=== PATIENT | female | born 1945 | race Caucasian/White ===

== ENCOUNTER → 2018-03-12 11:58 | Outpatient (CLI) | payer MEDICARE, OTHER, SELFPAY ==
--- NOTE | 2018-03-12 | DI.MG.S_ITS ---
BILATERAL DIGITAL SCREENING MAMMOGRAM 3D/2D WITH CAD: 03/12/2018 CLINICAL: Routine screening. Comparison is made to exam dated: 09/27/2013 [facility]. The tissue of both breasts is heterogeneously dense. This may lower the sensitivity of mammography. Current study was also evaluated with a Computer Aided Detection (CAD) system. No significant masses, calcifications, or other findings are seen in either breast. There has been no significant interval change. IMPRESSION: NEGATIVE There is no mammographic evidence of malignancy. A 1 year screening mammogram is recommended. This exam was interpreted at Station ID: [id number]. NOTE: For mammograms, a report in lay terms will be sent to the patient. Approximately 15% of breast malignancies will not be visualized mammographically. In the management of a palpable breast mass, a negative mammogram must not discourage biopsy of a clinically suspicious lesion. Electronically Signed By: Tj farmer/panfilo:03/12/2018 12:44:51 letter sent: Normal Exam ACR BI-RADS Category 1: Negative 3341F
== END ==
PROVIDERS: PCP Family Medicine; Visit Provider Family Medicine
DX: Z12.31 Encounter for screening mammogram for malignant neoplasm of breast (principal)
CPT/HCPCS: 77063; 77067

== ENCOUNTER → 2019-07-05 11:43 | Outpatient (CLI) | payer MEDICARE, OTHER, SELFPAY ==
--- NOTE | 2019-07-05 12:21 | DI.CT.S_ITS ---
PROCEDURE: CT CHEST WO CON INDICATIONS: Personal history of nicotine dependence TECHNIQUE: Noncontrast 5 mm thick sections acquired from the pulmonary apices to the posterior costophrenic angles. 1 mm lung window, 5 mm thick coronal and sagittal and 7 mm axial MIP reformats were then acquired. For radiation dose reduction, the following was used: automated exposure control, adjustment of mA and/or kV according to patient size. COMPARISON: None. FINDINGS: Image quality: Excellent. Lungs and pleura: Left upper lobe juxta controlled nodule measuring 3 mm, (3/73). Right lower lobe pulmonary nodule measuring 2 mm, (3/222). Calcified granuloma at the right apex. Mild scarring in the right middle lobe versus atelectasis. No acute air space opacities. No pleural effusions or pneumothorax. Central and peripheral airways are patent and normal in caliber. Mediastinum: Heart size is normal. Three-vessel coronary artery calcifications. No pericardial effusion. No mediastinal adenopathy by size criteria. Thoracic aorta and central pulmonary arteries are normal in size. Esophagus is normal in caliber. No hiatal hernia. Bones and chest wall: No suspicious bony lesions. No vertebral body compression fractures. Thoracic spine kyphosis. No axillary or supraclavicular adenopathy by size criteria. Thyroid gland is unremarkable. Abdomen: Visualized upper abdominal solid organs and bowel loops appear normal in the absence of contrast. IMPRESSION: 1. A few pulmonary nodules measuring 3 mm and less. Recommend low dose CT lung cancer screening can be performed in 12 months. 2. No suspicious adenopathy. Dictated by: Gavino Villagomez M.D. on 07/05/2019 at 13:02 Approved by: Gavino Villagomez M.D. on 07/05/2019 at 13:12
== END ==
PROVIDERS: PCP Family Medicine; Visit Provider Family Medicine
DX: R91.8 Other nonspecific abnormal finding of lung field (principal); I25.10 Atherosclerotic heart disease of native coronary artery without angina pectoris; Z87.891 Personal history of nicotine dependence
CPT/HCPCS: 71250

== ENCOUNTER → 2019-09-10 15:25 | Outpatient (CLI) | payer MEDICARE, OTHER, SELFPAY ==
--- NOTE | 2019-09-10 | DI.MG.S_ITS ---
BILATERAL DIGITAL SCREENING MAMMOGRAM 3D/2D WITH CAD: 09/10/2019 CLINICAL: Routine screening. Comparison is made to exams dated: 03/12/2018 mammogram and 09/27/2013 mammogram - [facility]. 03/22/2005 [facility]. The tissue of both breasts is heterogeneously dense. This may lower the sensitivity of mammography. Current study was also evaluated with a Computer Aided Detection (CAD) system. No significant masses, calcifications, or other findings are seen in either breast. There has been no significant interval change. IMPRESSION: NEGATIVE There is no mammographic evidence of malignancy. A 1 year screening mammogram is recommended. This exam was interpreted at Station ID: [id number]. NOTE: For mammograms, a report in lay terms will be sent to the patient. Approximately 15% of breast malignancies will not be visualized mammographically. In the management of a palpable breast mass, a negative mammogram must not discourage biopsy of a clinically suspicious lesion. Electronically Signed By: Gavino Villagomez M.D. slc/:09/10/2019 18:54:32 letter sent: Normal Exam ACR BI-RADS Category 1: Negative 3341F
== END ==
PROVIDERS: PCP Family Medicine; Visit Provider Family Medicine
DX: Z12.31 Encounter for screening mammogram for malignant neoplasm of breast (principal)
CPT/HCPCS: 77063; 77067

== ENCOUNTER → 2019-10-22 08:27 | Outpatient (CLI) | payer MEDICARE, OTHER, SELFPAY ==
[2019-10-22 09:19] LABS: Influenza A - CEPHEID Flu A NEGATIVE (NEGATIVE); Influenza B - CEPHEID Flu B NEGATIVE (NEGATIVE)
== END ==
PROVIDERS: PCP Family Medicine; Visit Provider Nurse Practitioner
DX: J02.9 Acute pharyngitis, unspecified (principal); R68.89 Other general symptoms and signs
CPT/HCPCS: 87070; 87502

== ENCOUNTER → 2020-07-13 09:35 | Outpatient (CLI) | payer MEDICARE, OTHER, SELFPAY ==
--- NOTE | 2020-07-13 10:16 | DI.CT.S_ITS ---
PROCEDURE: CT CHEST WO CON INDICATIONS: LUNG NODULE TECHNIQUE: Noncontrast 2.0-2.5 mm thick sections acquired from the pulmonary apices to the posterior costophrenic angles. 7 mm thick axial MIP and 5 mm coronal and sagittal reformats were then acquired. A low radiation dose technique was utilized. COMPARISON: [facility], CT, CT CHEST WO CON, 07/05/2019, 11:54. FINDINGS: Image quality: Diagnostic, given the low radiation dose technique. Lungs and pleura: 1 mm pulmonary nodule left upper lobe unchanged since 07/05/19. Additional 2 mm nodule seen in the posterior right lower lobe also unchanged. No further follow-up necessary. Scattered subsegmental atelectasis and/or scarring. No focal consolidation. Mild bronchiectasis seen in the right lower lobe. Mediastinum: Heart size is normal. Coronary artery calcifications are present. No pericardial effusion. No mediastinal adenopathy by size criteria. Thoracic aorta and central pulmonary arteries are normal in size. Esophagus is normal in caliber. No hiatal hernia. Bones and chest wall: No vertebral body compression fracture. Spondylytic changes and facet arthropathy. No axillary or supraclavicular adenopathy by size criteria. Thyroid gland negative . Abdomen: Visualized upper abdomen solid organs and bowel loops appear normal in the absence of contrast. IMPRESSION: Unchanged appearance of sub 5 mm pulmonary nodules since 07/05/19. No further follow-up necessary. Coronary artery disease. Fleischner Society criteria for SOLID lung nodule followup. Nodule size (mm)Low-risk patientHigh-risk patient<6 (single or multiple)No routine followup.Optional CT at 12 months. 6-8 (single or multiple)CT at 6-12 months, then optional CT at 18-24 mo.CT at 6-12 months, then CT at 18-24 months. >8 (single)CT at 3 months, PET-CT, or biopsy. Same as for low-risk pts. >8 (multiple)CT at 3-6 months, then optional CT at 18-24 mo.CT at 3-6 months, then CT at 18-24 months. Fleischner Society criteria for SUB-SOLID lung nodule followup. Solitary pure ground-glass nodules<6 mm (ground glass or part solid)No followup needed. 6 mm or larger (ground glass)CT at 6-12 months to confirm persistence, then CT every 2 years until 5 years.6 mm or larger (part solid)CT at 3-6 months to confirm persistence, then annual CT until 5 years if unchanged and solid component remains <6 mm. Multiple sub-solid nodules<6 mmCT at 3-6 months, then CT consider at 2 & 4 years for high risk patients. [address] at 3-6 months. Subsequent management based on most suspicious lesions. Recommendations do not apply to lung cancer screening, patients with immunosuppression, or patients with known primary cancer. Dictated by: Dustin Bertrand M.D. on 07/13/2020 at 12:05 Approved by: Dustin Bertrand M.D. on 07/13/2020 at 12:10
== END ==
PROVIDERS: PCP Family Medicine; Referring Provider Family Medicine; Visit Provider Family Medicine
DX: R91.8 Other nonspecific abnormal finding of lung field (principal); I25.10 Atherosclerotic heart disease of native coronary artery without angina pectoris
CPT/HCPCS: 71250

== ENCOUNTER → 2020-07-17 09:10 | Outpatient (CLI) | payer MEDICARE, OTHER, SELFPAY ==
[2020-07-19 18:24] LABS: COVID19 Sendout Not Detected (Not Detect)
== END ==
PROVIDERS: PCP Family Medicine; Visit Provider Nurse Practitioner
DX: Z11.59 Encounter for screening for other viral diseases (principal)
CPT/HCPCS: 87635

== ENCOUNTER → 2020-07-20 07:48 | Outpatient (CLI) | payer MEDICARE, OTHER, SELFPAY ==
--- NOTE | 2020-07-20 17:32 | DI.NM.S_ITS ---
DATE OF SERVICE: 07/20/2020 PROCEDURE PERFORMED: Pharmacologic vasodilator stress and rest Myoview myocardial perfusion imaging study with gating to assess ejection fraction and regional wall motion. REFERRING PHYSICIAN: Dr. Stefan Pal. INDICATIONS: The patient is a 75-year-old female with reported atherosclerosis of the aorta and a family history of heart disease. CARDIAC STRESS: Per protocol, 0.4 mg of regadenoson was infused and augmented by walking on the treadmill. With this, she had no chest discomfort and a had normal hemodynamic response. Her resting ECG has some nonspecific ST-segment abnormalities that become accentuated with stress which could reflect ischemia, but is nonspecific. There were no arrhythmias. Per protocol, she was injected with 26.8 millicuries of technetium-99m Myoview and was imaged 15 minutes later using a gated SPECT acquisition protocol. Earlier in the day while at rest, she was injected with 8.8 millicuries of technetium-99m Myoview and was imaged 30 minutes later, again using a gated SPECT acquisition protocol. FINDINGS: 1. Raw data: There are prominent breast shadows noted that clearly produce significant attenuation, particularly on the post-stress images. The lung/heart ratio is elevated at 0.50, although this is not clearly evident visually. TID ratio is normal at 1.15. 2. Quantitated gated SPECT: Post-stress ejection fraction is estimated at 66% without any focal wall motion abnormality and specifically the apical portion of the left ventricle appears to have normal contractility. The resting ejection fraction is 64% with a normal end-diastolic volume of 98 mL. 3. Myocardial perfusion imaging: Post-stress supine images show a fairly small, moderate perfusion defect in the apical fourth of the left ventricle in a circumferential manner that would be suggestive of breast attenuation artifact. This defect improves, but does not completely resolve, on the prone images. The resting images show a more uniform pattern of tracer activity with only a slight apical defect. CONCLUSION: 1. Probable abnormal myocardial perfusion study although with reduced specificity because of significant breast attenuation artifact. 2. Predominantly reversible circumferential perfusion defect involving the distal one-fourth of the left ventricle that improves, but does not completely resolve on the prone images. Given the reversibility, there is concern for ischemia although this could also reflect breast attenuation artifact with differential breast positioning. Clinical correlation is recommended. Consider a stress echocardiogram if there is a high degree of clinical concern for ischemia. 3. Normal left ventricular systolic function without any focal wall motion abnormality. 4. While there is increased lung uptake, this may also be artifactual given the lack of any clear visual evidence of such. 5. No angina with pharmacologic vasodilator stress with modest, nonspecific ST- segment changes that could possibly reflect ischemia. Lorena Smith - HOANG/andry/yumiko doc#: [id number]/job#: [id number] dd: 07/20/2020 16:22:00 dt: 07/20/2020 17:22:00 DICTATING MD/COPIES TO: Gregg Williamson MD; Uday Pal MD COPIES MNE: BLANCA;
== END ==
PROVIDERS: PCP Family Medicine; Referring Provider Family Medicine; Visit Provider Family Medicine
DX: I70.0 Atherosclerosis of aorta (principal); Z82.49 Family history of ischemic heart disease and other diseases of the circulatory system
CPT/HCPCS: 78452; 93017; A9502; J2785

== ENCOUNTER → 2020-10-06 07:33 | Outpatient (CLI) | payer MEDICARE, OTHER, SELFPAY ==
[2020-10-06 08:46] LABS: Alanine Aminotransferase 22 IU/L (<35); Albumin 4.3 g/dL (3.5-5.0); Albumin Globulin Ratio 1.5 (1.0-2.8); Alkaline Phosphatase 53 U/L (38-126); Aspartate Aminotransferase 34 IU/L (14-36); BUN Creatinine Ratio 29.5 (6-22); Bilirubin Total 0.4 mg/dL (0.2-1.3); Blood Urea Nitrogen 18 mg/dL (7-17); Calcium 9.9 mg/dL (8.4-10.2); Carbon Dioxide 34 mmol/L (22-32); Chloride 104 mmol/L (98-107); Cholesterol 230 mg/dL (140-199); Estimated Glomerular Filt Rate > 60.0 mL/min (>60); Globulin 2.9 g/dL (1.7-4.1); Glucose 100 mg/dL (80-110); HDL Cholesterol 78 mg/dL (40-60); HEMOLYSIS < 15 (0-50); LDL Cholesterol Calculated 128 mg/dL (<100); Potassium 4.4 mmol/L (3.4-5.1); Sodium 139 mmol/L (137-145); Total Protein 7.2 g/dL (6.3-8.2); Triglycerides 122 mg/dL (35-150)
[2020-10-06 08:47] LABS: Creatinine Urine Random 62.7 mg/dL
[2020-10-06 08:51] LABS: Microalbumi Creatinin Ratio Ur 20.7 ug/mg CR (<30); Microalbumin Urine Random 1.3 mg/dL (0-1.6)
== END ==
PROVIDERS: PCP Family Medicine; Referring Provider Family Medicine; Visit Provider Family Medicine
DX: E78.5 Hyperlipidemia, unspecified (principal); I70.90 Unspecified atherosclerosis; R03.0 Elevated blood-pressure reading, without diagnosis of hypertension
CPT/HCPCS: 36415; 80053; 80061; 82043; 82570

== ENCOUNTER → 2020-11-20 15:10 | Outpatient (CLI) | payer MEDICARE, OTHER, SELFPAY ==
[2020-11-20] MEDS: COVID-19 VACC #1, MRNA(MOD) 100 MCG/0.5 ML VIAL IM (15:29)
== END ==
PROVIDERS: PCP Family Medicine; Visit Provider Internal Medicine
DX: Z23 Encounter for immunization (principal)
CPT/HCPCS: 0011A; 91301

== ENCOUNTER → 2020-12-16 08:35 | Outpatient (CLI) | payer MEDICARE, OTHER, SELFPAY ==
[2020-12-16 10:07] LABS: Cholesterol 232 mg/dL (140-199); HDL Cholesterol 66 mg/dL (40-60); LDL Cholesterol Calculated 128 mg/dL (<100); Triglycerides 189 mg/dL (35-150)
== END ==
PROVIDERS: PCP Family Medicine; Referring Provider Nurse Practitioner; Visit Provider Nurse Practitioner
DX: E78.5 Hyperlipidemia, unspecified (principal)
CPT/HCPCS: 36415; 80061

== ENCOUNTER → 2020-12-18 12:53 | Outpatient (CLI) | payer MEDICARE, OTHER, SELFPAY ==
[2020-12-18] MEDS: COVID-19 VACC #2, MRNA(MOD) 100 MCG/0.5 ML VIAL IM (12:57)
== END ==
PROVIDERS: PCP Family Medicine; Visit Provider Internal Medicine
DX: Z23 Encounter for immunization (principal)
CPT/HCPCS: 0012A; 91301

== ENCOUNTER → 2021-01-04 11:26 | Outpatient (CLI) | payer MEDICARE, OTHER, SELFPAY ==
--- NOTE | 2021-01-04 11:28 | DI.RAD.S_ITS ---
PROCEDURE: XR HIP W PEL IF DONE PORFIRIO MIN 4V INDICATIONS: Bilateral hip OA TECHNIQUE: AP pelvis with lateral view(s) of the left and right hip(s). COMPARISON: [facility] [place], CR, XR PELVIS WITH LATERAL HIP LEFT, 10/02/2017, 14:32. FINDINGS: Bones: No fracture. Severe bilateral hip joint degeneration, left greater than right. Lumbar spondylosis and facet arthropathy. Pubis symphysis degenerative sclerosis and spurring. Soft tissues: The visualized bowel gas pattern is normal. No suspicious soft tissue calcifications. IMPRESSION: Severe bilateral hip joint degeneration, left greater than right. There is slight interval progression on the right since 10/02/17. Dictated by: Dustin Bertrand M.D. on 01/04/2021 at 14:20 Approved by: Dustin Bertrand M.D. on 01/04/2021 at 14:22
== END ==
PROVIDERS: PCP Family Medicine; Referring Provider Family Medicine; Visit Provider Family Medicine
DX: M16.0 Bilateral primary osteoarthritis of hip (principal); M19.90 Unspecified osteoarthritis, unspecified site
CPT/HCPCS: 73522

== ENCOUNTER → 2021-03-15 07:37 | Outpatient (CLI) | payer MEDICARE, OTHER, SELFPAY ==
[2021-03-15 08:25] LABS: Cholesterol 229 mg/dL (140-199); HDL Cholesterol 69 mg/dL (40-60); LDL Cholesterol Calculated 126 mg/dL (<100); Triglycerides 169 mg/dL (35-150)
== END ==
PROVIDERS: PCP Family Medicine; Referring Provider Family Medicine; Visit Provider Family Medicine
DX: E78.2 Mixed hyperlipidemia (principal)
CPT/HCPCS: 36415; 80061

== ENCOUNTER → 2021-05-18 08:10 | Outpatient (CLI) | payer MEDICARE, OTHER, SELFPAY ==
[2021-05-18 09:04] LABS: Add Manual Diff / Slide Review NO; Basophils Absolute Auto 0 /uL (0-100); Basophils Percent Auto 0.7 % (0-2); Eosinophils Absolute Auto 100 /uL (0-450); Eosinophils Percent Auto 3.7 % (2-4); Hematocrit 41.1 % (36-46); Hemoglobin 13.6 g/dL (12.0-16.0); Lymphocytes Absolute Auto 1000 /uL (1100-4500); Lymphocytes Percent Auto 27.8 % (25-40); Mean Corpuscular HGB Conc 33.2 % (30-36); Mean Corpuscular Hemoglobin 29.1 PG (26-34); Mean Corpuscular Volume 87.9 fL (80-100); Monocytes Absolute Auto 300 /uL (0-900); Monocytes Percent Auto 9.3 % (3-14); Neutrophils Absolute Auto 2100 /uL (1500-7000); Neutrophils Percent Auto 58.5 % (50-75); Platelet Count 204 X10^3/uL (150-400); Red Blood Cell Count 4.68 X10^6/uL (4.0-5.2); Red Cell Distribution Width 13.8 % (11.6-14.8); White Blood Cell Count 3.5 X10^3/uL (4.5-11.0)
[2021-05-18 09:34] LABS: Hemoglobin A1C% w Est Avg Glu 5.7 % (4.0-6.0)
[2021-05-18 09:35] LABS: Blood Urea Nitrogen 24 mg/dL (7-17); Carbon Dioxide 29 mmol/L (22-32); Chloride 105 mmol/L (98-107); Estimated Glomerular Filt Rate > 60.0 mL/min (>60); Glucose 99 mg/dL (80-110); HEMOLYSIS < 15 (0-50); Potassium 4.4 mmol/L (3.4-5.1); Sodium 142 mmol/L (137-145)
== END ==
PROVIDERS: PCP Family Medicine; Referring Provider Orthopaedic Surgery Adult Reconstructive Orthopaedic Surgery; Visit Provider Orthopaedic Surgery Adult Reconstructive Orthopaedic Surgery
DX: Z01.818 Encounter for other preprocedural examination (principal); R73.9 Hyperglycemia, unspecified; Z01.812 Encounter for preprocedural laboratory examination
CPT/HCPCS: 36415; 80048; 83036; 85025; 93005

== ENCOUNTER → 2021-06-14 14:07 | Outpatient (CLI) | payer MEDICARE, OTHER, SELFPAY ==
[2021-06-14 15:50] LABS: COVID19 -Nasal RAPID Negative (Negative)
== END ==
PROVIDERS: PCP Family Medicine; Visit Provider Nurse Practitioner
DX: Z20.822 Contact with and (suspected) exposure to COVID-19 (principal)
CPT/HCPCS: 87635; C9803

== ENCOUNTER 2021-06-16 12:15 | Day surgery (SDC) | payer MEDICARE, OTHER, SELFPAY ==
[2021-06-09 09:39] VITALS: BMI 27.4
[2021-06-16] VITALS (14 sets, daily range): BP systolic 112–135; BP diastolic 47–73; PULSE 68–89; RESP 12–17; TEMP 35.6–36.4; O2SAT 97–100; BMI 27.4
--- NOTE | 2021-06-16 08:53 | DI.RAD.S_ITS ---
PROCEDURE: XR PELVIS 1-2V INDICATIONS: left DANISHA TECHNIQUE: Intra-operative view of the pelvis and hip acquired. COMPARISON: None. FINDINGS: Bones: Intraoperative devices prior to placement of arthroplasty prostheses are in expected positions. No fractures or suspicious bony lesions. Soft tissues: Overlying surgical retractors are present, along with other intraoperative changes. IMPRESSION: Normal alignment established during preparation for placement of final components of left total hip arthroplasty. Dictated by: Adan Ariza M.D. on 06/16/2021 at 16:54 Approved by: Adan Ariza M.D. on 06/16/2021 at 16:54
[2021-06-16] MEDS: LACTATED RINGERS 1,000 ML 42 ML IV (12:50)
[2021-06-16] MEDS: ACETAMINOPHEN 325 MG TABLET 975 MG PO (13:11)
[2021-06-16] MEDS: CELECOXIB 200 MG CAPSULE PO (13:14)
--- NOTE | 2021-06-16 13:57 | PM.PREOP ---
Pre-operative Note COVID-19 COVID-19 status: Negative Result date/Date tested (Pos, Neg/Pending): 06/14/21 Interval Note History & Physical reviewed/Exam performed by Physician: Yes Changes to H&P: No H&P completed within 30 days and has changed as indicated here:: Plan for left anterior DANISHA
[2021-06-16] MEDS: CEFAZOLIN 1 GM VIAL 2 GM IV ×2 (14:37→22:16)
[2021-06-16] MEDS: TRANEXAMIC ACID 1,000 MG VIAL 2000 MG INJ ×2 (14:40→16:27)
[2021-06-16] MEDS: ROPIVACAINE 0.5% PF 5 MG/ML 20ML VIAL 60 ML INJ (15:04)
[2021-06-16] MEDS: MORPHINE 4 MG/ML INJ INJ (15:04)
[2021-06-16] MEDS: KETOROLAC 30 MG/ML VIAL IV (15:05)
--- NOTE | 2021-06-16 16:24 | SUR.OPER ---
Patient supine on padded [place] table, one arm on padded arm board at <90, other arm padded and secured with tape across patient's chest, both legs secured in padded traction boots and positioned per surgeon, padded post at patient's groin, pressure points checked and padded.
--- NOTE | 2021-06-16 16:33 | P.OP_ITS ---
Operative Date/Time/Diagnoses Date of procedure: 06/16/21 Time of procedure: 16:34 Pre-op diagnosis: left hip OA Post-op diagnosis: same Procedure & Clinicians Procedure: Left anterior total hip arthroplasty Same procedure as scheduled: Yes Indications: left hip OA resistant to further conservative measures Surgeon: Alonso Bach [employer] Processing: Alissa Kwok Anesthesia Type: General and Spinal Operative Notes Findings: Severe left hip osteoarthritis with femoral head collapse large osteophytes and subchondral sclerosis. Closure Type: primary Specimen(s): none sent Prosthetic devices, grafts, tissues, transplants, or devices: Gan and nephew R3 54 mm 3 hole cup 1x 25mm screw 1x 15mm screw 54 mm x 36 mm neutral offset polyethylene liner Anthology size 5, high offset Delta Biolox ceramic 36+ 0 Estimated Blood Loss (mL): 500 Procedure in detail: Patient was met in the preoperative holding area where the site and side surgery marked by . Informed consent had been reviewed in clinic was also reviewed the preoperative holding area. All last minute questions were answered. Patient was then brought back in operating room where she received a spinal anesthetic. She was placed on the [place] table and bilateral feet placed in well- padded [place] table boots. She was induced under general anesthesia. The left lower extremity then prepped and draped in the normal sterile fashion. A 7 cm long incision was made in skin with a 10. Blade starting approximately 2 cm distal 1 cm lateral to the ASIS aiming towards the fibular head. Electrocautery dissection was again carried down to the level the tensor fascia. A new 10. B lade was then used to incise the tensor fascia with knots clamp was placed on the medial leaflet of the tensor fascia the tensor was reflected laterally. A Cobra was then placed over the superior aspect of femoral neck. The matching retractors then placed over the lateral aspect of the rectus femoris the rectus was then retracted medially this gave us good exposure to the ascending branch of the femoral circumflex vessels these were coagulated using electrocautery. A 2nd Cobra retractors then placed under the inferior aspect of the femoral neck. A bent Hohmann was placed over the anterior aspect of the acetabulum to give us capsular exposure. An inverted T-shaped capsulotomy was then performed superior and inferior leaflets of the tap capsulotomy were then tagged with a FiberWire suture. Cobra retractors then placed intracapsularly. A reciprocating saw was then used to make the femoral neck cut based off our preoperative template. Corkscrew was then used to remove the femoral head. Soft tissue sleeve protector was then placed and the retractors were then replaced give us good exposure of the acetabulum. The pulvinar was then removed using electrocautery and suction. The rim to the labrum were then removed using [place] blade. We began reaming with a 44 mm Reamer to medialized. I then sized 2s and I got to 48 mm Reamer a 50 mm Reamer was then reamed under fluoroscopic guidance followed by 52 mm Reamer and a 53 mm Reamer. A 54 mm R3 three-hole cup was then selected. This was malleted into place under fluoroscopic guidance. Two screws were then placed 1 was a 25 mm screw the 2nd was a 50 mm screw both had good purchase. A 54 mm x 36 mm neutral offset polyethylene liner was then packed into place making sure the tabs were flush with the acetabular rim. Then turned my attention to the femoral side. A femoral elevator hook was then placed in the posterior aspect of the femur. Femur was then externally rotated to 120? extend to the floor and adducted. A vent hole was then placed over the superior aspect of the superior leaflet of the capsulotomy and the capsule was then further released off the inner shoulder of the greater trochanter to provide a soft spot over the superior aspect of the greater trochanter. A single large prong retractors then placed into the soft spot over the top of the greater trochanter. A Aaron retractor was then placed over the medial calcar. This gave us exposure to the to the femoral neck cut. A controlled release the short external rotators then performed. Canal finer was then used followed by a chili pepper broach followed by size 1 broach upsizing by 1 until I got to a size 5. I then calcar planed off the size 5 broach. I trialed with a standard offset neck length and a 36+ 0 head. Hip was then reduced and was stable with external rotation to 120? as well as external rotation 90? extension the floor. Fluoroscopy was then used to verify leg lengths which looked even. It was noted that we had less offset than the [place] contralateral side. We then decided to go to a high offset neck we had good fit and fill with a size 5 stem. The hip was then dislocated the broach was then removed and a size 5 high offset anthology stem was then malleted into place. A 36+ 0 delta Biolox head was then malleted on the trunnion the hip was reduced a final time. Local anesthetic was then infiltrated in the periarticular soft tissues including the capsulotomy. Betadine solution was then placed in the wound final fluoroscopic imaging was obtained patient was then lavaged with copious normal saline. The capsulotomy was then repaired using a running Ethibond suture followed by a running locking 1. Vicryl on the tensor fascia followed by a rip interrupted 2 Vicryl in the subcutaneous layer followed by running 3-0 Stratafix on the subcuticular followed by Dermabond and Aquacel dressing for Post-operative Condition: stable Disposition: PACU Plan for aftercare: 24 hours postop antibiotics, aspirin 81 mg b.i.d. for 6 weeks for DVT prophylaxis, weight-bearing as tolerated left lower extremity.
--- NOTE | 2021-06-16 16:48 | SUR.PHASEI ---
Patient to PACU with anesth and RN. Pt awake, alert, talking, breathing unassisted. Xray done at 1650
[2021-06-16] MEDS: LACTATED RINGERS 1,000 ML 125 ML IV (17:54)
--- NOTE | 2021-06-16 18:11 | PC.NURSE ---
Pt arrived on unit at approx 1740 from PACU, A and O x 4, VSS, on RA 96% Dressing is C/D/I, aquacell. Pt states she has no pain and is eating a regular diet. Denies nausea and needing to void at this time. LS clear, S1, S2. BT quiet.
[2021-06-16] MEDS: ASPIRIN EC 81 MG TABLET PO (20:31)
[2021-06-16] MEDS: IBUPROFEN 400 MG TABLET PO (20:31)
[2021-06-16] MEDS: ACETAMINOPHEN 325 MG TABLET 650 MG PO (20:31)
[2021-06-17 00:02] VITALS: BP 146/58; PULSE 80; RESP 18; TEMP 36.2; O2SAT 98
[2021-06-17] MEDS: IBUPROFEN 400 MG TABLET PO ×3 (00:44→09:57)
[2021-06-17 05:59] VITALS: BP 126/54; PULSE 75; RESP 16; TEMP 36.6; O2SAT 94
[2021-06-17 06:17] LABS: Hemoglobin 10.5 g/dL (12.0-16.0)
[2021-06-17] MEDS: CEFAZOLIN 1 GM VIAL 2 GM IV (06:23)
[2021-06-17] MEDS: OXYCODONE IR 5 MG TABLET PO (06:24)
--- NOTE | 2021-06-17 07:43 | P.DS_ITS ---
History of Present Illness History of Present Illness Date Patient Seen: 06/17/21 Time Patient Seen: 07:43 Chief complaint: Left hip pain Narrative: Patient's pain is mild. Denies fever or chills. No nausea vomiting. Patient has a friend lb home to assist her. Discharge Providers Provider Discharge Date: 06/17/21 Primary care physician: Jose Wolfe MD Consults: 06/09/21 11:44 Consult to Anesthesiology Routine Comment: Consulting Provider: Anesthesiologist Reason for consultation: PAC courtesy re: Abnormal pre-op EKG 06/16/21 08:53 Consult to Anesthesiology Routine Comment: Consulting Provider: Anesthesiologist Reason for consultation: Regional block for post operative pain control 06/16/21 17:29 Consult to Discharge Planning Routine Comment: Consult to Physical Therapy Evaluate & Treat Comment: Physician Instructions: post op DANISHA protocol Consult to Respiratory Therapy Evaluate & Treat Comment: Physician Instructions: Evaluate and treat Discharge provider: Nikolas Du PA-C Summary Hospital Course Discharge Diagnosis: Left hip osteoarthritis Hospital Course: Left anterior total hip arthroplasty Same procedure as scheduled: Yes Indications: left hip OA resistant to further conservative measures Surgeon: Alonso Bach Content Publisher: Alissa Kwok Anesthesia Type: General and Spinal Operative Notes Findings: Severe left hip osteoarthritis with femoral head collapse large osteophytes and subchondral sclerosis. Closure Type: primary Specimen(s): none sent Prosthetic devices, grafts, tissues, transplants, or devices: Gan and nephew R 3 54 mm 3 hole cup 1x 25mm screw 1x 15mm screw 54 mm x 36 mm neutral offset polyethylene liner Anthology size 5, high offset Delta Biolox ceramic 36+ 0 Estimated Blood Loss (mL): 500 Patient admitted to the hospital for left anterior total hip arthroplasty. Patient consented to the same. Patient taken operating room on June 16, 2021. Patient back in her room recovering well as in stable condition. Patient will be discharged home after physical therapy if safe for home environment. Status at Discharge Cognitive/behavioral status at discharge: at baseline, oriented Functional status at discharge: uses cane/walker Overall status at discharge: patient is progressing back to baseline Exam Vital Signs (past 8 hours): - 06/17/21 00:02 06/17/21 05:59 Temperature 97.1 F L 97.8 F Pulse Rate 80 75 Respiratory Rate 18 16 Blood Pressure 146/58 H 126/54 L Pulse Oximetry 98 94 Oxygen Delivery Method Room Air Oxygen Flow Rate 0 Narrative Exam Narrative: Pleasant 76-year-old female resting comfortably in bed in no a pparent distress. Motor functions intact bilateral lower extremities. Sensation grossly intact to light touch bilateral lower extremities. Both legs are warm and dry. Left hip dressing is Clean, dry, intact.. Objective Labs Result Diagrams: 06/17/21 05:51 Labs: Laboratory Results - last 24 hr 06/17/21 05:51 Hgb 10.5 L Hct 31.0 L PFSH Medical History (Updated 06/09/21 @ 10:17 by Mohini Solomon RN) Abnormal chest xray Allergies Anxiety (~1963) Asthma Atherosclerosis (~2019) Chicken pox Chronic back pain Depression (~1963) Fibroids (~1975) Frequent UTI Genital warts (~1975) GERD (gastroesophageal reflux disease) (~2010) Gout (~2005) Gynecological disorder History of hematologic disorder (~2007) Hyperlipidemia Insomnia Measles Mumps Osteoarthritis (~1999) Osteoarthritis of left hip Osteoarthritis of right hip Osteopenia (~2019) Plantar warts Polio (~1948) Shoulder pain (~2016) Sleep apnea Tinnitus (~2019) Vertigo (~2007) Wears glasses Surgical History Anesthesia History of cataract removal with insertion of prosthetic lens (~1999) History of facelift (~2014) History of plastic surgery (~1981) History of removal of cyst (~1989) History of tonsillectomy (~1954) Lipoma of axilla (~2015) Family History Father Congestive heart failure History of heart disease Hyperlipidemia Hypertension Mother History of heart disease Hyperlipidemia Hypertension History of heart artery stent Pacemaker Parkinson's disease Sister Congestive heart failure History of heart disease Hypertension Hyperlipidemia Obesity Social History (Updated 11/17/19 @ 15:54 by Devorah Smith) household members: none Smoking Status: Former smoker Tobacco: How many years used: 45 second hand exposure: No alcohol intake: current substance use type: does not use Discharge Assessment & Plan Assessment and Plan Assessment: Patient progressing as expected status post total hip arthroplasty, left anterior. Plan of Treatment: Mobilize with physical therapy this morning. Weightbearing as tolerated Multimodal pain management Discharge home today after physical therapy if safe for home environment. Discharge Plan Discharge Plan Patient Disposition: Home Discharge orders & Medications Discharge Orders: Discharge (Order); Ordered 06/17/21 Ordered By: Nikolas Du Prescriptions: New acetaminophen 325 mg Tablet 650 mg PO TID Qty: 60 RF: 0 polyethylene glycol 3350 17 gram Powder In Packet 17 gm PO DAILY PRN (Reason: Constipation) Qty: 15 RF: 0 aspirin 81 mg Tablet,Delayed Release (Dr/Ec) 81 mg PO BID Qty: 60 RF: 0 ibuprofen 400 mg Tablet 400 mg PO Q4HR Qty: 60 RF: 0 oxycodone 5 mg Tablet 5 mg PO Q3HR PRN (Reason: Pain, Moderate (4-6)) Qty: 60 RF: 0 Continued promethazine-codeine 6.25-10 mg/5 mL syrup 5 - 10 ml PO Q4HP PRN (Reason: cough) Qty: 180 RF: 2 fenofibrate 40 mg tablet 40 mg PO DAILY Qty: 90 RF: 1 rosuvastatin 5 mg tablet 5 mg PO QPM RF: 0 zolpidem 5 mg Tablet 5 mg PO BEDTIME PRN (Reason: Sleep) RF: 0 potassium 99 mg Tablet 99 mg PO TID RF: 0 vitamin K2 100 mcg Capsule 100 mcg PO TID RF: 0 Discontinued aspirin 81 mg tablet 81 mg PO DAILY RF: 0 acetaminophen 325 mg Capsule 325 mg PO BEDTIME RF: 0 Follow up/Referrals: Jose Wolfe MD [Primary Care Provider] - Alonso Bach MD [Physician] - (2 weeks) Diet/Activity/Treatments Diet: Diet as Tolerated Activity: Weight-bearing as tolerated Cold/Heat Therapy: Ice to hip as needed Skin/Wound/Dressing Care Report to your healthcare provider any signs of infection, such as:: chills, fever, increased pain, unusual drainage and unusual redness Dressing: Keep dressing clean and dry Visit Report/Discharge Packet Instructions: DI for Hip Replacement Stand Alone Forms: Surgery Discharge Discharge Data Primary Care Provider: Jose Wolfe Attending Provider: Alonso Bach Quality VTE Deep Vein Thrombosis/Pulmonary Embolism Present on Admission: No
[2021-06-17 08:20] VITALS: BP 119/59; PULSE 75; RESP 16; TEMP 36.8; O2SAT 97
[2021-06-17] MEDS: ACETAMINOPHEN 325 MG TABLET 650 MG PO (09:53)
[2021-06-17] MEDS: ASPIRIN EC 81 MG TABLET PO (09:54)
[2021-06-17] MEDS: FENOFIBRATE, MICRONIZED 67 MG CAPSULE PO (09:56)
--- NOTE | 2021-06-17 10:40 | PT.IIE ---
Current Diagnoses Unilateral primary osteoarthritis, left hip (06/16/21) Surgery Performed Operation Date: 06/16/21 13:45 Actual Procedures p Total Hip Arthroplasty/Anterior Approach(Left) - Alonso Bach MD Surgical History (Last Reviewed 03/18/21 @ 12:15 by Jose Wolfe MD) Anesthesia Lipoma of axilla (~2015) Medical History (Last Updated 06/09/21 @ 10:17 by Mohini Solomon RN) Abnormal chest xray Allergies Anxiety (~1963) Asthma Atherosclerosis (~2019) Chicken pox Chronic back pain Depression (~1963) Fibroids (~1975) Frequent UTI Genital warts (~1975) GERD (gastroesophageal reflux disease) (~2010) Gout (~2005) Gynecological disorder History of hematologic disorder (~2007) Hyperlipidemia Insomnia Measles Mumps Osteoarthritis (~1999) Osteoarthritis of left hip Osteoarthritis of right hip Osteopenia (~2019) Plantar warts Polio (~1948) Shoulder pain (~2016) Sleep apnea Tinnitus (~2019) Vertigo (~2007) Wears glasses Physical Therapy Inpatient Evaluation/Re-Eval M1 PT/OT-IP Prior Functional Status Start: 06/17/21 13:16 Freq: NEEDED Status: Active Protocol: Document 06/17/21 10:40 AB (Rec: 06/17/21 13:27 AB [id number]) Medical Review Prior Functional Status Medical History Reviewed Yes Communication able to make needs known Mobility and Gait pt stated that she is independent with all mobiltiies and ambulation using FWW indoors for the last 2-3 weeks and uses a SPC for outdoor mobility ; stated that she has been using a SPC for the last 5 years Social History Household Members none Living Arrangements Apartment/Condo Number of Floors (Floors) One Floor Number of Stairs To Enter/Railing? no steps to enter Home Environment High Toilet,Walk in Shower Home Equipment Front Wheel Walker,Straight Cane,Shower Seat with Backrest ,Hand Held Shower,Grab Bars In Shower Additional Social History Comment stated that her friend will stay with her until monday next week to assist her M2 PT-IP Current Condition Start: 06/17/21 13:16 Freq: NEEDED Status: Active Protocol: Document 06/17/21 10:40 AB (Rec: 06/17/21 13:27 AB [id number]) Physical Therapy Current Condition Current Condition Evaluation Date 06/17/21 Treatment Diagnosis s/p L DANISHA anterior approach; difficulty in walking Onset Date 06/16/21 Precautions Anterior Hip Precautions No Hip Extension,No Hip External Rotation Weight Bearing Status Weight Bearing Status Weight Bear as Tolerated Allowed Weight Bearing Amount (enter % LLE WBAT or #) (%) M3 PT-IP Subjective Start: 06/17/21 13:16 Freq: NEEDED Status: Active Protocol: Document 06/17/21 10:40 AB (Rec: 06/17/21 13:27 AB [id number]) Subjective Physical Therapy Visit Type Type Initial Evaluation Visit Start Time 10:40 Visit Stop Time 11:30 Total Visit Minutes 50 Number of IT HELP DESK ANALYST Visits 0 Physical Therapy Visit Comments Patient Comments able to make needs known Therapy Pain Assessment Pain When Pain Assessed At Rest Pain Present Pain Present Pain Reported Location Left Hip Intensity 6 Scale Used Numeric (0 - 10) Pain Management Techniques Apply Cold,Modification of Treatment,Re-positioning, Timing of Activity with Medications M4 PT-IP Mobility and Gait Start: 06/17/21 13:16 Freq: NEEDED Status: Active Protocol: Document 06/17/21 10:40 AB (Rec: 06/17/21 13:27 [id number]) PT-Bed Mobility Assessment Supine to Sit Supine to Sit Standby Assistance Sit to Supine Sit to Supine Standby Assistance PT-Transfer Assessment Sit to and From Stand Sit to and from Stand Standby Assistance,1 Person Assistance,Use of Upper Extremities Equipment Transfer Assistive Device Gait Belt,Front Wheeled Walker Orthotic/Prosthetic Devices or Brace: No Transfers Transfer Destination Bed,Chair,Toilet Transfer Technique ambulated Transfer Ability Level of Assist Standby Assistance,Use of Upper Extremities Comments Mobility Comments educated on anterior hip precautions. pt completed sit to stand from the chair SBA and ambulated to the toilet using FWW SBA. demonstrated sit <>stand from the toilet SBA without use of grab bars. ambulated to the bed and completed bed mobility sit<> supine. completed different ways to complete supine<>sit while adhereing to hip precautions. pt completed sit to stand from the bed SBA and ambulated in the hallway using FWW SBA ~ 150 ft. occasional cues for steadiness and precautions. ambulated back to the room and sat on chair. positioned on chair. call light and table placed within reach. informed nurse regarding pt's mobility and assistance. Gait Assessment Gait Gait Assistance Required: Standby Assistance Distance (Feet) 150 Able to Maintain Weight Bearing Status Yes During Gait Assistive Devices Assistive Device Gait Belt,Front Wheeled Walker Orthotic/Prosthetic Devices or Brace: No Gait Deviations General Gait Pattern Antalgic,Decreased Stride Length,Decreased Feet Clearance Factors Limiting Gait Function Factors Limiting Gait Function Decreased Activity Tolerance, Decreased Strength,Limited Range of Motion,Pain,Poor Balance PT-Balance Assessment Sitting Balance and Reactions Static Sitting Balance Ability Normal Dynamic Sitting Balance Ability Normal Standing Balance and Reactions Static Standing Balance Ability Good Dynamic Standing Balance Ability Fair Device Used FWW M5 PT-IP Objective Assessments Start: 06/17/21 13:16 Freq: NEEDED Status: Active Protocol: Document 06/17/21 10:40 AB (Rec: 06/17/21 13:27 AB [id number]) Orientation Orientation/Cognition Level of Alertness Alert Orientation Name,Age,Birthday,Month,Date, Year,Day of Week,Place, Situation Language Function Ability No Deficits Noted Safety Awareness Understands Safety Issues Memory Description Short Term Impaired Gross Range of Motion Lower Extremity ROM Assessment Within Functional Limits Strength Lower Extremity Strength Assessment Left Impaired Hip 3+/5 Knee 3+/5 Coordination Assessment Gross Coordination Gross Coordination WNL Sensation Assessment Sensation Gross Sensation WNL Muscle Tone Muscle Tone WNL Yes M6 PT-IP Treatment Start: 06/17/21 13:16 Freq: NEEDED Status: Active Protocol: Document 06/17/21 10:40 AB (Rec: 06/17/21 13:27 AB [id number]) Physical Therapy Treatment Education Education Provided Precautions,Weight Bearing Status,Post-Op Packet,Safety M7 PT-IP Assessment and Plan Start: 06/17/21 13:16 Freq: NEEDED Status: Active Protocol: Document 06/17/21 10:40 AB (Rec: 06/17/21 13:27 AB [id number]) PT Summary Assessment and Plan Potential Rehabilitation Potential Good Status of Condition at Evaluation Stable Summary Impairments Pain,ROM,Strength,Balance, Coordination,Sensation,Tone, Cognition,Bed Mobility, Transfers,Gait,Activity Tolerance Assessment Summary pt requiring SBA with mobility and plans to go home with her friend to assist her. pt is set up for outpt PT. pt may go home when medically stable. Goals Bed Mobility Goal Independent Transfer Goal Independent,Front Wheeled Walker Gait Goal Independent,Front Wheel Walker Gait Distance 200 Days to Meet Goals 3 Frequency of Treatment Frequency Of Treatment Twice a Day Treatment Plan Physical Therapy Treatment Plan Bed Mobility Training,Transfer Training,Gait Training, Therapeutic Exercise,Balance Retraining,Post Op Education, Discharge Planning,Hot or Cold Pack,Neuromuscular Re-ed, Coordination Retraining,Manual Therapy Precautions Anterior Hip Precautions No Hip Extension,No Hip External Rotation Other Precautions LLE WBAT Recommendations To Nursing Amount of Assist Needed Standby Assistance Discharge Recommendations PT Discharge Recommendations Home with Assistance, Outpatient PT Transportation Needs at Discharge Private Vehicle
[2021-06-17] MEDS: OXYCODONE IR 5 MG TABLET 10 MG PO (10:46)
--- NOTE | 2021-06-17 12:44 | PC.NURSE ---
Patient cleared by PT and eager to discharge to home with her friend Lindsey picking her up. IV removed intact. Dressing to left hip remains CDI. Discharge instructions and home care reviewed with patient. Patient states understanding and has no further questions or concerns at this time. Patient states she has a follow up appointment scheduled with orthopedic office. Instructed to call orthopedic office for questions or concerns. Escorted out via wheelchair by [employer] with all belongings.
--- NOTE | 2021-06-17 15:27 | CM.IDA ---
Initial DCP Assessment Note Pt is a 76 yo female, resident of [place], now POD#1 from left hip surgery by Dr Bach PCP: Jose Wolfe Payer: YULY/Josee Reviewed chart, pt discussed in multidisciplinary rounds this morning. Therapy has cleared pt for return home w/friend to assist and pt has planned for home, DC order from Ortho has already been initiated this morning. Met w/patient, introduced role. Patient in very good spirits and looking forward to returning home No needs expected from DC planning team although will remain available in case this changes today. DIANN Bui
== END 2021-06-17 12:47 | disposition home or self-care (01) ==
LOC: OR 12:21 → AC 12:22
PROVIDERS: PCP Family Medicine; Referring Provider Family Medicine; Visit Provider Orthopaedic Surgery Adult Reconstructive Orthopaedic Surgery
PROC: (CPT 27130; principal; 2021-06-16 13:45)
DX: M16.12 Unilateral primary osteoarthritis, left hip (principal); M25.752 Osteophyte, left hip; G47.33 Obstructive sleep apnea (adult) (pediatric); I25.10 Atherosclerotic heart disease of native coronary artery without angina pectoris; J45.909 Unspecified asthma, uncomplicated
CPT/HCPCS: 27130; 36415; 36592; 72170; 85014; 85018; 97116; 97161; 97530; C1776; J0690; J1885; J2250; J2270; J2704; J3010

== ENCOUNTER → 2021-09-21 14:26 | Outpatient (CLI) | payer MEDICARE, OTHER, SELFPAY ==
[2021-06-16 22:30] VITALS: BMI 27.4
[2021-08-30 14:46] VITALS: BMI 27.4
--- NOTE | 2021-09-21 14:29 | DI.MG.S_ITS ---
BILATERAL DIGITAL SCREENING MAMMOGRAM 3D/2D WITH CAD: 09/21/2021 CLINICAL: Routine screening. Comparison is made to exams dated: 09/10/2019 mammogram, 03/12/2018 mammogram, and 09/27/2013 mammogram - [facility]. The tissue of both breasts is heterogeneously dense. This may lower the sensitivity of mammography. Current study was also evaluated with a Computer Aided Detection (CAD) system. No significant masses, calcifications, or other findings are seen in either breast. There has been no significant interval change. IMPRESSION: NEGATIVE There is no mammographic evidence of malignancy. A 1 year screening mammogram is recommended. This exam was interpreted at Station ID: [id number]. NOTE: For mammograms, a report in lay terms will be sent to the patient. Approximately 15% of breast malignancies will not be visualized mammographically. In the management of a palpable breast mass, a negative mammogram must not discourage biopsy of a clinically suspicious lesion. Electronically Signed By: José cade/panfilo:09/22/2021 09:11:47 letter sent: Normal Exam ACR BI-RADS Category 1: Negative [id number]
== END ==
PROVIDERS: PCP Family Medicine; Referring Provider Family Medicine; Visit Provider Family Medicine
DX: Z12.31 Encounter for screening mammogram for malignant neoplasm of breast (principal)
CPT/HCPCS: 77063; 77067

== ENCOUNTER → 2021-09-24 08:36 | Outpatient (CLI) | payer MEDICARE, OTHER, SELFPAY ==
[2021-08-30 14:46] VITALS: BMI 27.4
[2021-09-24 09:07] LABS: Add Manual Diff / Slide Review NO; Basophils Absolute Auto 0 /uL (0-100); Basophils Percent Auto 0.7 % (0-2); Eosinophils Absolute Auto 100 /uL (0-450); Eosinophils Percent Auto 3.7 % (2-4); Hematocrit 39.1 % (36-46); Hemoglobin 13.1 g/dL (12.0-16.0); Lymphocytes Absolute Auto 1200 /uL (1100-4500); Lymphocytes Percent Auto 37.9 % (25-40); Mean Corpuscular HGB Conc 33.5 % (30-36); Mean Corpuscular Volume 83.4 fL (80-100); Monocytes Absolute Auto 300 /uL (0-900); Monocytes Percent Auto 8.1 % (3-14); Neutrophils Absolute Auto 1600 /uL (1500-7000); Neutrophils Percent Auto 49.6 % (50-75); Platelet Count 196 X10^3/uL (150-400); Red Blood Cell Count 4.69 X10^6/uL (4.0-5.2); Red Cell Distribution Width 14.2 % (11.6-14.8); White Blood Cell Count 3.3 X10^3/uL (4.5-11.0)
[2021-09-24 09:23] LABS: Cholesterol 227 mg/dL (140-199); HDL Cholesterol 81 mg/dL (40-60); LDL Cholesterol Calculated 124 mg/dL (<100); Triglycerides 109 mg/dL (35-150)
== END ==
PROVIDERS: PCP Family Medicine; Referring Provider Family Medicine; Visit Provider Family Medicine
DX: E78.5 Hyperlipidemia, unspecified (principal); D64.9 Anemia, unspecified; F41.9 Anxiety disorder, unspecified
CPT/HCPCS: 36415; 80061; 85025

== ENCOUNTER → 2021-12-08 09:08 | Outpatient (CLI) | payer MEDICARE, OTHER, SELFPAY ==
[2021-08-30 14:46] VITALS: BMI 27.4
[2021-12-08 10:42] LABS: Cholesterol 311 mg/dL (140-199); HDL Cholesterol 81 mg/dL (40-60); LDL Cholesterol Calculated 200 mg/dL (<100); Triglycerides 152 mg/dL (35-150)
== END ==
PROVIDERS: PCP Family Medicine; Referring Provider Family Medicine; Visit Provider Family Medicine
DX: E78.2 Mixed hyperlipidemia (principal); F51.01 Primary insomnia
CPT/HCPCS: 36415; 80061

== ENCOUNTER → 2022-03-02 16:29 | Outpatient (CLI) | payer MEDICARE, OTHER, SELFPAY ==
[2021-08-30 14:46] VITALS: BMI 27.4
--- NOTE | 2022-03-02 16:35 | DI.RAD.S_ITS ---
PROCEDURE: XR HIP W PEL IF DONE RT 2V INDICATIONS: right hip pain TECHNIQUE: AP pelvis and lateral view of the left hip acquired. COMPARISON: [facility] [place], [place], XR PELVIS WITH LATERAL HIP LEFT, 07/27/2021, 13:35. FINDINGS: Bones: Patient is status post left hip arthroplasty, with hardware components in expected positions. The hip joint appears congruent. The visualized bony structures appear intact. Moderate to severe right hip joint space narrowing with periarticular osteophyte formation. Soft tissues: Overlying postoperative changes are noted. No suspicious soft tissue densities. IMPRESSION: 1. Stable appearance of left hip arthroplasty. 2. Moderate to severe right hip joint degeneration similar prior examination. Dictated by: Nito Escobar [facility] Interpreted: Nirmala Brennan MD on 03/02/2022 at 17:02 Transcribed by: MELIA on 03/02/2022 at 17:03 Approved by: Nirmala Brennan M.D. on 03/02/2022 at 17:11
--- NOTE | 2022-03-02 16:35 | DI.RAD.S_ITS ---
PROCEDURE: XR KNEE RT 3V INDICATIONS: right hip pain TECHNIQUE: 3 views of the knee were acquired. COMPARISON: None. FINDINGS: Bones: No fractures or dislocations. No suspicious bony lesions. Mild narrowing of the medial femorotibial joint and the medial patellofemoral knee joint. Soft tissues: No joint effusion. No suspicious soft tissue calcifications. IMPRESSION: Mild knee joint degeneration. Dictated by: Nito Escobar [facility] Interpreted: Nirmala Brennan MD on 03/02/2022 at 17:02 Transcribed by: MELIA on 03/02/2022 at 17:02 Approved by: Nirmala Brennan M.D. on 03/02/2022 at 17:11
== END ==
PROVIDERS: PCP Family Medicine; Referring Provider Family Medicine; Visit Provider Family Medicine
DX: M17.11 Unilateral primary osteoarthritis, right knee (principal); M16.11 Unilateral primary osteoarthritis, right hip; M25.561 Pain in right knee; M25.551 Pain in right hip; M25.531 Pain in right wrist; Z96.641 Presence of right artificial hip joint
CPT/HCPCS: 73502; 73562

== ENCOUNTER → 2022-06-02 17:35 | Outpatient (CLI) | payer MEDICARE, OTHER, SELFPAY ==
[2021-08-30 14:46] VITALS: BMI 27.4
== END ==
PROVIDERS: PCP Family Medicine; Visit Provider Family Medicine
DX: R23.8 Other skin changes (principal)
CPT/HCPCS: 87252; 87593

== ENCOUNTER → 2022-06-09 17:10 | Outpatient (ROUT) | payer MEDICARE, OTHER, SELFPAY ==
[2022-06-08 08:55] VITALS: BMI 27.4
== END ==
PROVIDERS: PCP Family Medicine; Visit Provider Family Medicine
DX: R23.8 Other skin changes (principal)
CPT/HCPCS: 87070; 87075; 87147; 87205; 87252

== ENCOUNTER → 2022-06-30 14:08 | Outpatient (CLI) | payer MEDICARE, OTHER, SELFPAY ==
[2022-06-08 08:55] VITALS: BMI 27.4
--- NOTE | 2022-06-30 14:10 | DI.RAD.S_ITS ---
PROCEDURE: XR KNEE RT 3V INDICATIONS: right knee pain TECHNIQUE: 3 views of the knee were acquired. COMPARISON: [facility], , XR KNEE RT 3V, 03/02/2022, 16:31. FINDINGS: Bones: No fractures or dislocations. No suspicious bony lesions. There is mild tricompartmental arthritic change. Minimal periarticular osteophytes are present. No erosions. Overall appearance is stable compared to prior exam. Soft tissues: Minimal joint effusion. No suspicious soft tissue calcifications. IMPRESSION: Mild arthritic change. No visualized acute fracture or dislocation. However, if clinical concern and/or pain persist, short interval imaging followup in 7-10 days is recommended, as occult injury cannot be definitively excluded. Dictated by: Nirmala Brennan M.D. on 06/30/2022 at 16:12 Approved by: Nirmala Brennan M.D. on 06/30/2022 at 16:12
== END ==
PROVIDERS: PCP Family Medicine; Referring Provider Family Medicine; Visit Provider Family Medicine
DX: M25.561 Pain in right knee (principal)
CPT/HCPCS: 73562

== ENCOUNTER → 2022-07-04 07:59 | Outpatient (CLI) | payer MEDICARE, OTHER, SELFPAY ==
[2022-06-08 08:55] VITALS: BMI 27.4
[2022-07-04 11:58] LABS: Cholesterol 230 mg/dL (140-199); HDL Cholesterol 72 mg/dL (40-60); LDL Cholesterol Calculated 136 mg/dL (<100); Triglycerides 110 mg/dL (35-150)
== END ==
PROVIDERS: PCP Family Medicine; Referring Provider Family Medicine; Visit Provider Family Medicine
DX: E78.2 Mixed hyperlipidemia (principal)
CPT/HCPCS: 36415; 80061

== ENCOUNTER → 2022-10-04 13:18 | Outpatient (CLI) | payer MEDICARE, OTHER, SELFPAY ==
[2022-06-08 08:55] VITALS: BMI 27.4
--- NOTE | 2022-10-04 13:20 | DI.RAD.S_ITS ---
PROCEDURE: XR SHOULDER LT MIN 2V INDICATIONS: left shoulder pain TECHNIQUE: 3 views of the shoulder were acquired. COMPARISON: None. FINDINGS: Bones: No fractures or dislocations. No suspicious bony lesions. Visualized ribs appear intact. Soft tissues: No suspicious soft tissue calcifications. IMPRESSION: No fracture. No acute osseous lesion. If symptoms and/or clinical suspicion for pathology persists, further assessment with repeat radiographs (7-10 days) or advanced imaging (e.g. CT, MRI or bone scan) should be considered. Dictated by: Lisa Duke MD, PhD on 10/04/2022 at 14:50 Approved by: Lisa Duke MD, PhD on 10/04/2022 at 15:12
--- NOTE | 2022-10-04 13:20 | DI.RAD.S_ITS ---
PROCEDURE: XR HIP W PEL IF DONE RT 2V INDICATIONS: right hip, back and left shoulder pain TECHNIQUE: AP pelvis and lateral view of the right hip acquired. COMPARISON: [facility], ANU, XR HIP W PEL IF DONE RT 2V, 03/02/2022, 16:31. FINDINGS: Bones: Patient is status post left hip arthroplasty, with hardware components in expected positions. The hip joint appears congruent. The visualized bony structures appear intact. Moderate right hip osteoarthritic degenerative change with joint space narrowing and osseous hypertrophy. Soft tissues: Overlying postoperative changes are noted. No suspicious soft tissue densities. IMPRESSION: Moderate right hip osteoarthritis. Dictated by: Lisa Duke MD, PhD on 10/04/2022 at 15:14 Approved by: Lisa Duke MD, PhD on 10/04/2022 at 15:15
--- NOTE | 2022-10-04 13:20 | DI.RAD.S_ITS ---
PROCEDURE: XR LUMBAR SPINE 2-3V INDICATIONS: right hip, back and left shoulder pain TECHNIQUE: 3 views of the lumbar spine were acquired. COMPARISON: None. FINDINGS: Bones: 5 [id number] vertebrae are present. There is mild convex right lumbar spine curvature. There is mild, approximately 3 millimeters of L1-L2 and L2-L3 retrolisthesis. There is mild, approximately 8 millimeters of L4-L5 anterolisthesis. No vertebral body compression fractures. No suspicious bony lesions. Moderate L1-L2 degenerative disc changes. Mild L2-L3, L3-L4, L4-L5 and L5-S1 degenerative disc changes. Moderate L2-L3, L3-L4, L4-L5 and L5-S1 facet arthropathy. Partially visualized left hip arthroplasty. Soft tissues: Overlying bowel gas pattern is normal. No suspicious soft tissue calcifications. IMPRESSION: 1. Multilevel degenerative disc disease. 2. Multilevel facet arthropathy. 3. No fracture. No acute osseous lesion. If symptoms and/or clinical suspicion for pathology persists, evaluation with MRI should be considered for further assessment. Dictated by: Lisa Duke MD, PhD on 10/04/2022 at 15:13 Approved by: Lisa Duke MD, PhD on 10/04/2022 at 15:14
== END ==
PROVIDERS: PCP Family Medicine; Referring Provider Family Medicine; Visit Provider Family Medicine
DX: M51.36 Other intervertebral disc degeneration, lumbar region (principal); M47.816 Spondylosis without myelopathy or radiculopathy, lumbar region; M47.817 Spondylosis without myelopathy or radiculopathy, lumbosacral region; M16.11 Unilateral primary osteoarthritis, right hip; M25.512 Pain in left shoulder; M54.50 Low back pain, unspecified; Z96.642 Presence of left artificial hip joint
CPT/HCPCS: 72110; 73030; 73502

== ENCOUNTER → 2023-06-30 09:50 | Outpatient (CLI) | payer MEDICARE, OTHER, SELFPAY ==
[2023-06-15 15:31] VITALS: BMI 27.4
[2023-06-30 12:29] LABS: Estimated Glomerular Filt Rate > 60 mL/min (>60)
== END ==
PROVIDERS: PCP Family Medicine; Referring Provider Family Medicine; Visit Provider Family Medicine
DX: Z01.812 Encounter for preprocedural laboratory examination (principal)
CPT/HCPCS: 36415; 82565

== ENCOUNTER → 2023-07-27 06:58 | Outpatient (CLI) | payer MEDICARE, OTHER, SELFPAY ==
[2023-06-15 15:31] VITALS: BMI 27.4
[2023-07-27 07:42] LABS: Creatinine Urine Random 125.5 mg/dL
[2023-07-27 07:45] LABS: Add Manual Diff / Slide Review NO; Basophils Absolute Auto 0 /uL (0-100); Basophils Percent Auto 0.9 % (0-2); Eosinophils Absolute Auto 200 /uL (0-450); Eosinophils Percent Auto 4.3 % (2-4); Hematocrit 38.9 % (36-46); Hemoglobin 13.3 g/dL (12.0-16.0); Lymphocytes Absolute Auto 1500 /uL (1100-4500); Lymphocytes Percent Auto 41.4 % (25-40); Mean Corpuscular HGB Conc 34.1 % (30-36); Mean Corpuscular Hemoglobin 29.9 PG (26-34); Mean Corpuscular Volume 87.9 fL (80-100); Monocytes Absolute Auto 400 /uL (0-900); Monocytes Percent Auto 9.7 % (3-14); Neutrophils Absolute Auto 1600 /uL (1500-7000); Neutrophils Percent Auto 43.7 % (50-75); Platelet Count 178 X10^3/uL (150-400); Red Blood Cell Count 4.43 X10^6/uL (4.0-5.2); White Blood Cell Count 3.7 X10^3/uL (4.5-11.0)
[2023-07-27 07:47] LABS: Microalbumi Creatinin Ratio Ur 38.2 ug/mg CR (<30); Microalbumin Urine Random 4.8 mg/dL (0-1.6)
[2023-07-27 07:57] LABS: Alanine Aminotransferase 25 IU/L (<35); Albumin 4.3 g/dL (3.5-5.0); Albumin Globulin Ratio 1.4 (1.0-2.8); Alkaline Phosphatase 54 U/L (38-126); Aspartate Aminotransferase 32 IU/L (14-36); BUN Creatinine Ratio 50.8 (6-22); Bilirubin Total 0.6 mg/dL (0.2-1.3); Blood Urea Nitrogen 32 mg/dL (7-17); Calcium 10.1 mg/dL (8.4-10.2); Carbon Dioxide 31 mmol/L (22-32); Chloride 106 mmol/L (98-107); Cholesterol 228 mg/dL (140-199); Estimated Glomerular Filt Rate > 60 mL/min (>60); Glucose 97 mg/dL (80-110); HDL Cholesterol 82 mg/dL (40-60); HEMOLYSIS < 15 (0-50); LDL Cholesterol Calculated 121 mg/dL (<100); Potassium 4.5 mmol/L (3.4-5.1); Sodium 141 mmol/L (137-145); Total Protein 7.3 g/dL (6.3-8.2); Triglycerides 126 mg/dL (35-150)
[2023-07-27 08:29] LABS: TSH w/ Reflex to FT4 3.19 uIU/mL (0.47-4.68)
== END ==
PROVIDERS: PCP Family Medicine; Referring Provider Family Medicine; Visit Provider Family Medicine
DX: I70.90 Unspecified atherosclerosis (principal); F41.9 Anxiety disorder, unspecified; M85.80 Other specified disorders of bone density and structure, unspecified site; F32.9 Major depressive disorder, single episode, unspecified; E78.5 Hyperlipidemia, unspecified; D64.9 Anemia, unspecified
CPT/HCPCS: 36415; 80053; 80061; 82043; 82570; 84443; 85025

== ENCOUNTER → 2023-10-30 08:41 | Outpatient (CLI) | payer MEDICARE, OTHER, SELFPAY ==
[2023-08-24 15:49] VITALS: BMI 27.4
[2023-10-30 09:54] LABS: Cholesterol 191 mg/dL (140-199); Glucose 97 mg/dL (80-110); HDL Cholesterol 78 mg/dL (40-60); LDL Cholesterol Calculated 89 mg/dL (<100); Triglycerides 118 mg/dL (35-150)
[2023-10-31 08:26] LABS: Apolipoprotein B 82 mg/dL (<90)
[2023-11-02 04:24] LABS: Lipoprotein (a) 233.4 nmol/L (<75.0)
== END ==
PROVIDERS: PCP Family Medicine; Referring Provider Family Medicine; Visit Provider Family Medicine
DX: Z13.1 Encounter for screening for diabetes mellitus (principal); E78.2 Mixed hyperlipidemia; I25.10 Atherosclerotic heart disease of native coronary artery without angina pectoris
CPT/HCPCS: 36415; 80061; 82172; 82947; 83695

== ENCOUNTER → 2024-01-20 08:40 | Outpatient (CLI) | payer MEDICARE, OTHER, SELFPAY ==
[2024-01-01 12:49] VITALS: BMI 27.4
[2024-01-20 10:02] LABS: Add Manual Diff / Slide Review NO; Basophils Absolute Auto 0 /uL (0-100); Basophils Percent Auto 0.7 % (0-2); Eosinophils Absolute Auto 100 /uL (0-450); Hematocrit 39.6 % (36-46); Hemoglobin 13.4 g/dL (12.0-16.0); Lymphocytes Absolute Auto 1600 /uL (1100-4500); Lymphocytes Percent Auto 41.2 % (25-40); Mean Corpuscular HGB Conc 33.8 % (30-36); Mean Corpuscular Hemoglobin 29.8 PG (26-34); Monocytes Absolute Auto 300 /uL (0-900); Monocytes Percent Auto 7.9 % (3-14); Neutrophils Absolute Auto 1800 /uL (1500-7000); Neutrophils Percent Auto 47.2 % (50-75); Platelet Count 197 X10^3/uL (150-400); Red Blood Cell Count 4.51 X10^6/uL (4.0-5.2); Red Cell Distribution Width 14.4 % (11.6-14.8); White Blood Cell Count 3.8 X10^3/uL (4.5-11.0)
[2024-01-20 10:10] LABS: Prothrombin Time 11.8 SECONDS (9.4-12.5)
[2024-01-20 10:15] LABS: BUN Creatinine Ratio 42.4 (6-22); Blood Urea Nitrogen 28 mg/dL (7-17); Carbon Dioxide 31 mmol/L (22-32); Chloride 108 mmol/L (98-107); Estimated Glomerular Filt Rate > 60 mL/min (>60); Glucose 102 mg/dL (80-110); HEMOLYSIS < 15 (0-50); Potassium 4.5 mmol/L (3.4-5.1); Sodium 141 mmol/L (137-145)
== END ==
LOC: LAB 08:47
PROVIDERS: PCP Family Medicine; Referring Provider Internal Medicine Cardiovascular Disease; Visit Provider Internal Medicine Cardiovascular Disease
DX: Z86.79 Personal history of other diseases of the circulatory system (principal); R94.39 Abnormal result of other cardiovascular function study
CPT/HCPCS: 36415; 80048; 85025; 85610